=== PATIENT | female | born 1970 | race Caucasian/White ===

== ENCOUNTER 2017-08-25 22:50 | Emergency (ER) | payer MEDICAID ==
[2017-08-25] MEDS ORDERED: KETAMINE 500 MG/10 ML VIAL ONE (22:55)
[2017-08-25] MEDS ORDERED: KETAMINE 200 MG/20 ML VIAL IVP ONE (22:58)
[2017-08-25] MEDS: KETAMINE 500 MG/10 ML VIAL IM ONE ×2 (23:00→23:51)
[2017-08-25] MEDS ORDERED: NS 2,000 ML IV ONE (23:10)
[2017-08-25] MEDS ORDERED: ETOMIDATE 40 MG/20 ML INJ IVP ONE (23:12)
[2017-08-25] MEDS ORDERED: VECURONIUM BROMIDE 10 MG VIAL IV ONE (23:12)
[2017-08-25] MEDS ORDERED: PROPOFOL 200 MG/20 ML VIAL IVP ONE (23:13)
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
[2017-08-25 23:24] LABS: PLATELET COUNT 275 10^3/uL (150-400)
[2017-08-25 23:37] LABS: CREATINE KINASE 108 IU/L (0-156)
[2017-08-25 23:39] VITALS: TEMP 95.2
[2017-08-25] MEDS ORDERED: PROPOFOL/EMULSION 100 ML IV SCH (23:45)
[2017-08-25] MEDS ORDERED: FAMOTIDINE 20 MG/2 ML SDV IVP ONE (23:46)
[2017-08-26] MEDS ORDERED: VECURONIUM BROMIDE 10 MG VIAL ONE (00:13)
[2017-08-26 01:34] VITALS: BP 145/99; PULSE 86; RESP 22; O2SAT 99
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
== END 2017-08-26 00:15 | disposition short-term general hospital (02) ==
LOC: EDUNIT#
PROC: 0BH17EZ Insertion of Endotracheal Airway into Trachea, Via Natural or Artificial Opening (ICD-10-PCS; principal; 2017-08-25)
PROC: 0T9B70Z Drainage of Bladder with Drainage Device, Via Natural or Artificial Opening (ICD-10-PCS; 2017-08-25)
DX: T21.21XA Burn of second degree of chest wall, initial encounter (principal); T21.22XA Burn of second degree of abdominal wall, initial encounter; T31.20 Burns involving 20-29% of body surface with 0% to 9% third degree burns; F17.200 Nicotine dependence, unspecified, uncomplicated; X11.8XXA Contact with other hot tap-water, initial encounter
CPT/HCPCS: 80305; 96365; G0480